=== PATIENT | female | born 1985 | race Caucasian/White ===

== ENCOUNTER 2017-11-11 02:30 | Emergency (ER) | payer OTHER ==
[~2017-11-11] VITALS: Ht 157.5 cm; Wt 74.8 kg
[2017-11-11] MEDS ORDERED: STRATTERA100 MG PO (02:40)
[2017-11-11] MEDS ORDERED: BIRTH CONTROL PO (02:41)
[2017-11-11] MEDS ORDERED: AMOXICILLIN875 MG PO (03:13)
[2017-11-11] MEDS ORDERED: AMOXICILLIN 50500 M1 PO (03:13)
[2017-11-11] MEDS ORDERED: HYDROCODON-ACE1 EAC7 PO (03:13)
[2017-11-11] MEDS ORDERED: IBUPROFEN 800800 MG PO (03:13)
[2017-11-11 03:42] VITALS: BP 128/78
== END 2017-11-11 03:43 | disposition home or self-care (01) ==
LOC: M.ERS 02:30
DX: H66.91 Otitis media, unspecified, right ear (principal); F17.210 Nicotine dependence, cigarettes, uncomplicated

== ENCOUNTER 2020-02-23 21:36 | Emergency (ER) | payer OTHER ==
[~2020-02-23] VITALS: Ht 160 cm; Wt 48.5 kg
[~2020-02-23 21:36] MED LIST: AMOXICILLIN 50500 M1 PO; AMOXICILLIN875 MG PO; BIRTH CONTROL PO; HYDROCODON-ACE1 EAC7 PO; IBUPROFEN 800800 MG PO; STRATTERA100 MG PO
[2020-02-23] MEDS ORDERED: IBUPROFEN 800800 MG PO (22:32)
[2020-02-23 22:37] VITALS: BP 137/81
== END 2020-02-23 22:38 | disposition home or self-care (01) ==
LOC: M.ERS 21:36
DX: S01.111A Laceration without foreign body of right eyelid and periocular area, initial encounter (principal); F17.210 Nicotine dependence, cigarettes, uncomplicated; Z79.899 Other long term (current) drug therapy; W50.0XXA Accidental hit or strike by another person, initial encounter; Y93.89 Activity, other specified; Y92.89 Other specified places as the place of occurrence of the external cause; Y99.8 Other external cause status